=== PATIENT | female | born 1955 | race Caucasian/White ===

== ENCOUNTER → 2017-01-05 | Outpatient (CLI) | payer OTHER ==
[~2017-01-05] MED LIST: ADVIL200 MG PO; ASPIRIN81 MG PO; AUGMENTIN 500 M1 TAB PO; COZAAR50 MG PO; VENLAFAXINE HCL75 MG PO
== END | disposition short-term general hospital (02) ==
LOC: CLENT 10:35
DX: H93.13 Tinnitus, bilateral (principal)

== ENCOUNTER 2017-01-12 07:52 | Day surgery (SDC) | payer OTHER ==
[~2017-01-12] VITALS: Ht 163.8 cm; Wt 155.1 kg
== END 2017-01-12 11:05 | disposition short-term general hospital (02) ==
LOC: SURGOP 07:52
PROC: 0DBN8ZZ Excision of Sigmoid Colon, Via Natural or Artificial Opening Endoscopic (ICD-10-PCS; principal; 2017-01-12)
DX: Z12.11 Encounter for screening for malignant neoplasm of colon (principal); K63.5 Polyp of colon; K57.30 Diverticulosis of large intestine without perforation or abscess without bleeding; K64.4 Residual hemorrhoidal skin tags; I10 Essential (primary) hypertension; E66.9 Obesity, unspecified; G47.33 Obstructive sleep apnea (adult) (pediatric); Z86.010 Personal history of colon polyps; Z90.49 Acquired absence of other specified parts of digestive tract; Z98.890 Other specified postprocedural states; Z88.8 Allergy status to other drugs, medicaments and biological substances; Z79.82 Long term (current) use of aspirin; Z79.899 Other long term (current) drug therapy; Z87.19 Personal history of other diseases of the digestive system; Z98.51 Tubal ligation status; Z80.0 Family history of malignant neoplasm of digestive organs; Z82.49 Family history of ischemic heart disease and other diseases of the circulatory system
CPT/HCPCS: J2175; J2250; J2405